=== PATIENT | female | born 1975 | race Caucasian/White ===

== ENCOUNTER → 2016-06-26 | Outpatient (CLI) | payer BC ==
[~2016-06-26] MED LIST: B-COTAB18 PO; BUPR-79 PO; CHOL1TAB42 PO; CYM/30 PO; GLC/500 PO; LEVO137T3 PO; MISCCAP80 PO; OXYC5TAB PO; TOPI200T14 PO
[2016-06-26 11:46] LABS: THYROID STIMULATING HORMONE 0.521 uIu/ml (0.300-4.500)
== END | disposition home or self-care (01) ==
LOC: C.LAB1850 09:46
PROVIDERS: ATTEND Internal Medicine Endocrinology, Diabetes & Metabolism
DX: E03.9 Hypothyroidism, unspecified (principal); E06.3 Autoimmune thyroiditis

== ENCOUNTER 2024-09-25 02:49 | Inpatient (IN) ==
[2024-09-25] MEDS: ONDANSETRON INJ 2 MG/ML 2 ML VIAL ONE (03:10)
--- NOTE | 2024-09-25 03:18 | Emergency Department Note ---
Impression & Plan Calculus of ureterovesical junction (UVJ), Hydronephrosis, Intractable abdominal pain ED Provider Note CHIEF COMPLAINT: Abdominal pain, nausea, vomiting, urinary retention HISTORY OF PRESENT ILLNESS: This 49-year-old female patient presents to the emergency department via private vehicle for evaluation of abdominal pain which radiates to the left flank. She states she has had nausea and vomiting and has been unable to pee since about 10 PM. She states that she medication for symptoms. Denies any history of similar symptoms. She does have a history of nephrolithiasis, but denies passing of any stones. The patient denies any fever. She denies any chills. She does feel constipated. No recent diarrhea. No chest pain or shortness of breath. History provided by: Patient REVIEW OF SYSTEMS: A 10 system review of systems was performed with positives and pertinent negatives listed in the history of present illness. All other systems were reviewed and are negative. ALLERGIES: Erythromycin PHYSICAL EXAM: VITALS: Vitals are noted on the nurse's note and reviewed by myself. GENERAL: This is a 49-year-old female, writhing around on the bed but in no acute distress, nondiaphoretic, well-developed well-nourished. SKIN: The skin was without rashes, erythema, edema, or bruising. There is no tenting of the skin. Capillary refill less than 2 seconds. HEAD: Normocephalic atraumatic. EYES: Conjunctivae without injection, sclerae without icterus. MOUTH: Mucous membranes moist. Tonsils are not enlarged. Pharynx without erythema or exudate. Uvula midline. Airway patent. Tongue does not deviate. NECK: Supple without nuchal rigidity. No lymphadenopathy. Cervical spine is nontender. No JVD. HEART: Regular rate and rhythm without murmurs gallops or rubs. LUNGS: Clear to auscultation bilaterally without wheezes, rales or rhonchi. No retractions or accessory muscle use. ABDOMEN: Positive bowel sounds x 4. Soft, without masses or organomegaly. LLQ tenderness to palpation. Left flank tenderness. Zapata sign negative. Generalized guarding. No rebound tenderness. MUSCULOSKELETAL: No muscle atrophy, erythema, or edema noted. Full range of motion without joint tenderness in all extremities. No tenderness to palpation. Normal gait. Strength 5/5 throughout. NEURO: Patient was alert and oriented to person place and time. Normal sensation to light and sharp touch. Deep tendon reflexes 2+ throughout. No focal neurological deficits. An order was placed for continuous court liaison. The monitor showed a sinus bradycardia at a ventricular rate of 50 bpm, per my interpretation. Imaging as interpreted by myself and the radiologist revealed 4 mm left UVJ stone with hydronephrosis, with radiologist interpretation as above. I agree with the radiologist's findings as based upon my independent interpretation. EMERGENCY DEPARTMENT COURSE: The patient was evaluated as above. The patient presents to the emergency department for abdominal pain, nausea, and vomiting. The patient is complaining of urinary retention. On initial evaluation, she is writhing around on the bed. She is retching. No active vomiting, but she states she had been vomiting frequently earlier in the evening. IV access was obtained, labs were drawn. Patient was medicated with IV Toradol and acetaminophen. She was medicated with IV Zofran and fluids. Labs reviewed. Per my interpretation, mild leukocytosis 11.98. No anemia or thrombocytopenia. Renal, hepatic function and electrolytes without significant abnormality. Lipase 34. Patient has been able to provide a urine. Patient continued to complain of severe abdominal pain. She was medicated with IV morphine. CT imaging was completed and reviewed by myself and radiologist as noted. This shows a 4 mm left UVJ stone. There is hydronephrosis. Patient continue current plan of intractable pain. Unfortunately, her blood pressure is 88 systolic at this time. I advised her that until her blood pressure improves, I am not comfortable administering additional narcotic analgesics. Repeat blood pressure shows the patient's blood pressure is in the 120s systolic. Patient medicated with additional morphine and Zofran. I discussed the case with Dr. López, [facility] hospitalist physician. He did agree to evaluate the patient for admission. Urinalysis is still pending at this time. Patient is complaining of worse abdominal pain after administration of the morphine. She is continuing to have dry heaves. Patient medicated with IV fentanyl, Reglan, and Benadryl. Please see hospitalist dictation regarding ongoing management of this patient and final disposition. Case was discussed with the attending physician. This visit is during a period of high volume and high acuity in the emergency department. I attest that I have personally reviewed the patient medication list. I attest that I have reviewed the patient's blood pressure and it was found to be normal. GCS: 15 In the evaluation and treatment of this patient the following differential diagnoses were entertained: Renal colic, UTI, appendicitis, diverticulitis, mesenteric ischemia, aortic pathology, infections, inflammatory bowel disease, PUD, biliary pathology, as well as other pathologies. The chart was completed utilizing [employer] Speech voice recognition software. Grammatical errors, random word insertions, pronoun errors, and incomplete sentences are an occasional consequence of this system due to software limitations, ambient noise, and hardware issues. Any formal questions or concerns about the content, text, or information contained within the body of this dictation should be directly addressed to the provider for clarification. Past Med/Surg History Problem List (Updated 09/25/24 @ 07:27 by Keyanna Younger PA-C) Intractable abdominal pain (Acute) Hydronephrosis (Acute) Calculus of ureterovesical junction (UVJ) (Acute) Polyneuropathy Dizziness Numbness and tingling of both feet Pain in left foot Menorrhagia Hypothyroidism (Acute) Messi's thyroiditis (Acute) Vitamin B12 deficiency Migraine headache Migraine without aura Vitamin D deficiency Medical History PCOS (polycystic ovarian syndrome) IBS (irritable bowel syndrome) Aneurysm Blurry vision Depression Dysfunctional uterine bleeding Dysmenorrhea Fibromyalgia Hypertrophy of breast Mitral valve disorder Surgical History (Updated 09/26/23 @ 12:43 by Kitty Beaver DO) S/P patent foramen ovale closure Status post tubal ligation S/P endometrial ablation S/P dilatation and curettage S/P colonoscopy S/P hysterectomy Social History Smoking Status: Never smoker Preferred Language: Estonian Feels Safe at Home: Yes Allergies Allergies Allergy/AdvReac Type Severity Reaction Status Date / Time erythromycin base Allergy Unknown RASH Verified 09/26/23 15:19 Home Meds Home Medications Medication Instructions Recorded Confirmed levothyroxine 137 mcg tablet 137 mcg PO DAILY 07/07/20 09/26/23 multivitamin (Multiple Vitamins 1 tab PO DAILY 07/07/20 09/26/23 tablet) cyanocobalamin (vitamin B-12) 1,000 mcg PO DAILY 02/08/21 09/26/23 1,000 mcg capsule cholecalciferol (vitamin D3) 25 4,000 unit PO DAILY 03/06/21 09/26/23 mcg (1,000 unit) tablet dextroamphetamine-amphetamine 20 20 mg PO BID 08/08/21 09/26/23 mg tablet albuterol sulfate 90 mcg/actuation 2 puff inhalation Q4H PRN 09/26/23 09/26/23 aerosol inhaler Shortness Of Breath Or Wheezing Previous Rx's Medication Instructions Recorded albuterol sulfate 2.5 mg/3 mL 2.5 mg (3 mL) inhalation Q4H PRN 09/26/23 (0.083 %) solution for nebulization shortness of breath or wheezing #75 mL prednisone 10 mg tablet See Rx Instructions .Route 09/26/23 .COMPLEX #21 tabs duloxetine 30 mg capsule,delayed 30 mg PO DAILY #30 caps 05/13/24 release (Cymbalta) topiramate 200 mg tablet 200 mg PO BID 90 days #180 tabs 06/16/24 rimegepant 75 mg disintegrating 75 mg PO DAILY PRN migraine 07/12/24 tablet (Nurtec ODT) headache #8 tabs Results & Data (ED) Vital Signs Vital Signs - 24 hr 09/25/24 02:58 09/25/24 03:00 09/25/24 03:13 Temperature 36.5 C 36.7 C Temperature Source Temporal Artery Scan Oral Pulse Rate 50 L Pulse Rate [Right Finger] 50 L Pulse Rhythm [Right Finger] Respiratory Rate 20 18 Respiratory Effort / Characteristics Non-Labored Spontaneous Respiratory Depth Normal Normal Respiratory Pattern Regular Blood Pressure 114/53 L Blood Pressure [Right Arm] 148/67 H Blood Pressure Mean 73 Blood Pressure Mean [Right Arm] 94 Blood Pressure Position [Right Arm] Pulse Oximetry 97 93 97 Oxygen Delivery Method Room Air Room Air Room Air Sepsis Recent Fever Within 48 Hours No Sepsis New/Unexplained Change in Mental Status No Sepsis Action Taken by Nursing No Action Required 09/25/24 03:49 09/25/24 04:00 09/25/24 05:00 Temperature Temperature Source Pulse Rate 52 L Pulse Rate [Right Finger] 50 L 65 Pulse Rhythm [Right Finger] Respiratory Rate 16 17 Respiratory Effort / Characteristics Non-Labored Spontaneous Non-Labored Spontaneous Respiratory Depth Normal Normal Respiratory Pattern Regular Regular Blood Pressure Blood Pressure [Right Arm] 117/56 L 95/46 L Blood Pressure Mean Blood Pressure Mean [Right Arm] 76 62 Blood Pressure Position [Right Arm] Lying Lying Pulse Oximetry 98 96 Oxygen Delivery Method Room Air Room Air Sepsis Recent Fever Within 48 Hours Sepsis New/Unexplained Change in Mental Status Sepsis Action Taken by Nursing 09/25/24 06:30 09/25/24 07:02 Temperature 36.7 C Temperature Source Oral Pulse Rate Pulse Rate [Right Finger] 64 73 Pulse Rhythm [Right Finger] Regular Respiratory Rate 22 18 Respiratory Effort / Characteristics Non-Labored Spontaneous Non-Labored Spontaneous Respiratory Depth Normal Normal Respiratory Pattern Regular Regular Blood Pressure Blood Pressure [Right Arm] 111/57 L 127/60 Blood Pressure Mean Blood Pressure Mean [Right Arm] 75 82 Blood Pressure Position [Right Arm] Lying Semi-fowlers Pulse Oximetry 96 93 Oxygen Delivery Method Room Air Room Air Sepsis Recent Fever Within 48 Hours Sepsis New/Unexplained Change in Mental Status Sepsis Action Taken by Nursing Laboratory Data 09/25/24 03:25 09/25/24 03:25 Lab Results 09/25/24 09/25/24 Range/Units 03:25 05:56 WBC 11.98 H (4.8-10.8) K/ul RBC 4.08 L (4.20-5.40) M/uL Hgb 13.0 (12.0-16.0) g/dl Hct 37.8 (37.0-47.0) % MCV 92.6 (80.0-100.0) fL MCH 31.9 (25.0-34.0) pg MCHC 34.4 (32.0-36.0) g/dL RDW Std Deviation 43.7 (36.4-46.3) fL RDW Coeff of Delaney 12.9 (11.5-14.5) % Plt Count 244 (130-400) K/uL MPV 10.5 (9.4-12.4) fL Immature Gran % (Auto) 0.4 % Neut % (Auto) 77.6 % Lymph % (Auto) 17.9 % Kidder % (Auto) 2.9 % Eos % (Auto) 0.8 % Baso % (Auto) 0.4 % Neut # (Auto) 9.29 H (1.40-6.50) K/uL Lymph # (Auto) 2.15 (1.20-3.40) K/uL Kidder # (Auto) 0.35 (0.11-0.59) K/uL Eos # (Auto) 0.09 (0.00-0.50) K/uL Baso # (Auto) 0.05 (0.00-0.20) K/uL Immature Gran # (Auto) 0.05 (0.01-0.20) K/uL Sodium 142 (136-145) mmol/L Potassium 3.4 L (3.5-5.1) mmol/L Chloride 106 (98-107) mmol/L Carbon Dioxide 30 (21-32) mmol/L Anion Gap 6 (3-11) BUN 14 (6-23) mg/dl Creatinine 0.89 (0.6-1.2) mg/dl Est Cr Clr Drug Dosing 70.0 ml/min eGFR 78.45 BUN/Creatinine Ratio 15.7 (10-20) Glucose 135 H (70-99(Fasting)) mg/dl Calcium 9.2 (8.6-10.3) mg/dl Total Bilirubin 0.3 (0.2-1.0) mg/dl AST 15 (13-39) U/L ALT 11 (7-52) U/L Alkaline Phosphatase 62 (34-104) U/L Total Protein 6.6 (6.0-8.3) gm/dl Albumin 4.4 (3.4-5.0) gm/dl Globulin 2.2 L (2.5-4.0) gm/dl Albumin/Globulin Ratio 2.0 (0.9-2) Lipase 34 (11-82) U/L Urine Comment Administered Medications Discontinued Medications Sodium Chloride (Nss) 1,000 mls @ 999 mls/hr IV .Q1H1M ONE Stop: 09/25/24 04:08 Last Infusion: 09/25/24 04:51 Dose: Infused Documented By: JESUS ALBERTO Admin: 09/25/24 03:22 Dose: 999 mls/hr Documented By: JESUS ALBERTO Acetaminophen (Ofirmev) 1,000 mg in 100 mls @ 400 mls/hr IV NOW STA Stop: 09/25/24 03:27 Last Infusion: 09/25/24 03:43 Dose: Infused Documented By: JESUS ALBERTO Admin: 09/25/24 03:21 Dose: 400 mls/hr Documented By: JESUS ALBERTO Sodium Chloride (Nss) 1,000 mls @ 999 mls/hr IV .Q1H1M ONE Stop: 09/25/24 06:48 Last Infusion: 09/25/24 07:03 Dose: Infused Documented By: Admin: 09/25/24 05:59 Dose: 999 mls/hr Documented By: JESUS ALBERTO Ketorolac Tromethamine (Ketorolac 30 Mg/Ml Vial) 30 mg IV NOW STA Stop: 09/25/24 03:14 Last Admin: 09/25/24 03:20 Dose: 30 mg Documented By: JESUS ALBERTO Morphine Sulfate (Morphine Sulfate 4 Mg/Ml 1 Ml Carp\Vial) 4 mg IV NOW STA Stop: 09/25/24 04:25 Last Admin: 09/25/24 04:31 Dose: 4 mg Documented By: JESUS ALBERTO Morphine Sulfate (Morphine Sulfate 2 Mg/Ml Carp) 2 mg IV NOW STA Stop: 09/25/24 06:41 Last Admin: 09/25/24 06:43 Dose: 2 mg Documented By: JESUS ALBERTO Ondansetron HCl (Ondansetron Inj 2 Mg/Ml 2 Ml Vial) 4 mg IV NOW STA Stop: 09/25/24 03:09 Last Admin: 09/25/24 03:21 Dose: 4 mg Documented By: JESUS ALBERTO Ondansetron HCl (Ondansetron Inj 2 Mg/Ml 2 Ml Vial) Confirm Administered Dose 4 mg .ROUTE .STK-MED ONE Stop: 09/25/24 03:09 Last Admin: 09/25/24 03:10 Dose: Not Given Documented By: [facility] Ondansetron HCl (Ondansetron Inj 2 Mg/Ml 2 Ml Vial) 4 mg IV NOW STA Stop: 09/25/24 06:41 Last Admin: 09/25/24 06:43 Dose: 4 mg Documented By: JESUS ALBERTO Imaging Data Radiologist's Impression: Abdomen/Pelvis CT 09/25/24 03:13 EXAM: CT abd pelvis wo con CLINICAL HISTORY: left flank pain TECHNIQUE: Contiguous axial images were obtained from the level of the diaphragm to the pubic symphysis without intravenous or oral contrast. Coronal and sagittal reconstructions were likewise performed and indicated to increase the sensitivity for detecting clinically relevant pathology. CT scan was performed according to ALARA (as low as reasonable achievable). 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 Evaluation of the abdominal and pelvic visceral organs is limited without intravenous contrast. The unenhanced liver, spleen, pancreas, and adrenal glands are grossly unremarkable. The gallbladder is removed. The kidneys are normal in size and attenuation without obvious calcification. Few tiny 2-3 mm sized calculi are noted involving mid and lower calyx of left kidney. Left kidney shows hydronephrosis and hydroureter up to an obstructing calculus of size 4 mm is noted in left vesicoureteric junction. The ureters are normal in caliber. No adenopathy or fluid collections are seen. No evidence of focal or diffuse bowel wall thickening or evidence of bowel obstruction is seen. The appendix is visualized in the right lower quadrant and appears within normal limits. The aorta is normal in caliber. The urinary bladder is normal in contour. Pelvic viscera are grossly unremarkable. No aggressive appearing osseous lesions are identified. Degenerative changes noted in visualised spine. Colonic fecal and gaseous distension. IMPRESSION: 1. Few tiny 2-3 mm sized calculi are noted involving mid and lower calyx of left kidney.- increased in numbers since prior. 2. Left kidney shows hydronephrosis and hydroureter up to an obstructing calculus of size 4 mm in left vesicoureteric junction.-new finding. Electronically signed by Jc Miller 09-25-2024 04:39 AM Discharge Plan Visit Data Chief Complaint: Urinary Symptoms Stated Complaint: PAIN IN LEFT FLANK,VOMITING,UNABLE TO VOID ED Provider: Tatianna Salcedo ED Midlevel Provider: Keyanna Younger Discharge Problem: Calculus of ureterovesical junction (UVJ), Hydronephrosis, Intractable abdominal pain Patient Disposition: Admitted As Inpatient Condition: Fair Forms Stand Alone Forms: [facility] Prescriptions Prescriptions: No Action cholecalciferol (vitamin D3) 25 mcg (1,000 unit) tablet 4,000 unit PO DAILY duloxetine [Cymbalta] 30 mg capsule,delayed release(DR/EC) 30 mg PO DAILY Qty: 30 5RF topiramate 200 mg tablet 200 mg PO BID 90 Days Qty: 180 3RF Nurtec ODT 75 mg tablet,disintegrating 75 mg PO DAILY PRN (Reason: migraine headache) Qty: 8 5RF Rx Instructions: using nurtec now only as needed cyanocobalamin (vitamin B-12) 1,000 mcg capsule 1,000 mcg PO DAILY levothyroxine 137 mcg tablet 137 mcg PO DAILY multivitamin [Multiple Vitamins] Tablet 1 tab PO DAILY dextroamphetamine-amphetamine 20 mg tablet 20 mg PO BID albuterol sulfate 90 mcg/actuation HFA aerosol inhaler 2 puff INHALATION Q4H PRN (Reason: Shortness Of Breath Or Wheezing) albuterol sulfate 2.5 mg /3 mL (0.083 %) solution for nebulization 2.5 mg inhalation Q4H PRN (Reason: shortness of breath or wheezing) Qty: 75 0RF prednisone 10 mg tablet See Rx Instructions .ROUTE .COMPLEX Qty: 21 0RF Rx Instructions: Take 6 tabs by mouth day 1, then 5 tabs on day 2, then decrease by 1 tab daily until complete Referrals Referrals: Verna Cheatham DO [Primary Care Provider] -
[2024-09-25] MEDS: KETOROLAC 30 MG/ML VIAL IV STA (03:20)
[2024-09-25] MEDS: ONDANSETRON INJ 2 MG/ML 2 ML VIAL IV STA ×2 (03:21→06:43)
[2024-09-25] MEDS: ACETAMINOPHEN 1,000 MG/100 ML VIAL IV STA (03:21)
[2024-09-25] MEDS: SODIUM CHLORIDE 0.9% 1,000 ML IV ONE ×2 (03:22→05:59)
[2024-09-25 03:36] LABS: Basophils # (auto) 0.05 K/uL (0.00-0.20); Basophils % (auto) 0.4 %; Eosinophils # (auto) 0.09 K/uL (0.00-0.50); Eosinophils % (auto) 0.8 %; Hematocrit (blood only) 37.8 % (37.0-47.0); Immature Granulocytes # (auto) 0.05 K/uL (0.01-0.20); Immature Granulocytes % (auto) 0.4 %; Lymphocytes # (auto) 2.15 K/uL (1.20-3.40); Lymphocytes % (auto) 17.9 %; Mean Corpuscular Hemoglobin 31.9 pg (25.0-34.0); Mean Corpuscular Hgb Conc 34.4 g/dL (32.0-36.0); Mean Corpuscular Volume 92.6 fL (80.0-100.0); Mean Platelet Volume 10.5 fL (9.4-12.4); Monocytes # (auto) 0.35 K/uL (0.11-0.59); Monocytes % (auto) 2.9 %; Neutrophils # (auto) 9.29 K/uL (1.40-6.50); Neutrophils % (auto) 77.6 %; Platelet Count 244 K/uL (130-400); RDW Coefficient of Variation 12.9 % (11.5-14.5); RDW Standard Deviation 43.7 fL (36.4-46.3); Red Blood Count 4.08 M/uL (4.20-5.40); White Blood Count 11.98 K/ul (4.8-10.8)
[2024-09-25 04:00] LABS: Albumin Level 4.4 gm/dl (3.4-5.0); Bilirubin,Total 0.3 mg/dl (0.2-1.0); Calcium 9.2 mg/dl (8.6-10.3); Potassium 3.4 mmol/L (3.5-5.1)
[2024-09-25 04:06] LABS: BUN Creatinine Ratio 15.7 (10-20); Globulin 2.2 gm/dl (2.5-4.0); Total Protein 6.6 gm/dl (6.0-8.3)
[2024-09-25] MEDS: MoRPHine SULFATE 4 MG/ML 1 ML CARP\\VIAL IV STA (04:31)
--- NOTE | 2024-09-25 04:40 | CT Scan Report ---
EXAM: CT abd pelvis wo con CLINICAL HISTORY: left flank pain TECHNIQUE: Contiguous axial images were obtained from the level of the diaphragm to the pubic symphysis without intravenous or oral contrast. Coronal and sagittal reconstructions were likewise performed and indicated to increase the sensitivity for detecting clinically relevant pathology. CT scan was performed according to ALARA (as low as reasonable achievable). 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 Evaluation of the abdominal and pelvic visceral organs is limited without intravenous contrast. The unenhanced liver, spleen, pancreas, and adrenal glands are grossly unremarkable. The gallbladder is removed. The kidneys are normal in size and attenuation without obvious calcification. Few tiny 2-3 mm sized calculi are noted involving mid and lower calyx of left kidney. Left kidney shows hydronephrosis and hydroureter up to an obstructing calculus of size 4 mm is noted in left vesicoureteric junction. The ureters are normal in caliber. No adenopathy or fluid collections are seen. No evidence of focal or diffuse bowel wall thickening or evidence of bowel obstruction is seen. The appendix is visualized in the right lower quadrant and appears within normal limits. The aorta is normal in caliber. The urinary bladder is normal in contour. Pelvic viscera are grossly unremarkable. No aggressive appearing osseous lesions are identified. Degenerative changes noted in visualised spine. Colonic fecal and gaseous distension. IMPRESSION: 1. Few tiny 2-3 mm sized calculi are noted involving mid and lower calyx of left kidney.- increased in numbers since prior. 2. Left kidney shows hydronephrosis and hydroureter up to an obstructing calculus of size 4 mm in left vesicoureteric junction.-new finding. Electronically signed by Jc Miller 09-25-2024 04:39 AM
[2024-09-25] MEDS: MoRPHine SULFATE 2 MG/ML CARP IV STA ×2 (06:43→12:06)
[2024-09-25] MEDS: diphenhydrAMINE 50 MG/ML VIAL IV STA (07:31)
[2024-09-25] MEDS: METOCLOPRAMIDE HCL INJ 5 MG/ML 2 ML VIAL IV STA (07:31)
[2024-09-25] MEDS: fentaNYL citrate PF 100 MCG/2 ML VIAL IV STA (07:32)
[2024-09-25 07:37] LABS: Appearance Urine Clear (Clear); Bacteria Urine Automated None Seen (None Seen); Bilirubin Urine Negative (Negative); Blood Urine 3+ (Negative); Cast Urine Automated 0-2 /lpf (0-2); Color Urine Yellow; Epithelial Cell Urine Auto 0-2 /hpf (0-2); Glucose Urine UA Negative (Negative); Ketones Urine 1+ (Negative); Leukocyte Esterase Urine Negative (Negative); Nitrite Urine Negative (Negative); Protein Urine Trace (Negative); RBC Urine Automated >20 /hpf (0-2); Specific Gravity Urine 1.027 (1.000-1.030); Urobilinogen Urine Negative (Negative); WBC Urine Automated 0-5 /hpf (0-5)
--- NOTE | 2024-09-25 08:35 | History & Physical Report ---
Date of Service September 25, 2024 Assessment & Plan (1) Nephrolithiasis: (2) Intractable abdominal pain: (3) Hydronephrosis: (4) Calculus of ureterovesical junction (UVJ): (5) Hypothyroidism: (6) Migraine headache: (7) Bradycardia: Plan 49-year-old female with a past medical history of migraines/neuropathy [place] [facility] [place], endometriosis s/p hysterectomy, and PFO s/p repair 20 years prior presents for evaluation of abdominal pain which radiates to the left flank associated with nausea, vomiting, and difficulty urinating since the prior evening. Nephrolithiasis/Intractable abdominal pain/Hydronephrosis - Nausea/vomiting associated with 8-10/10 L. flank pain and moderate LLQ pain - CT AP significant for 4mm obstructing stone in the left vesicoureteric junction with hydronephrosis and a few 2-3mm calculi in the mid and lower left renal calyx. Flomax not indicated based on size of stone - CBC with left shift and mild leukocytosis - Pain control: Toradol 30mg IV Q6H, consider Morphine 2mg IV Q4H PRN - Mild hypokalemia: 3.4 - NSS with 20meq KCL 100ml/hr 1L started - NPO- will advance as tolerated - Consider urology consult if pain is not tolerable for potential stenting Bradycardia - Asymptomatic, patient denies chest pain, lightheadedness, and dizziness - EKG significant for sinus bradycardia - Continue CCM and follow symptoms Chronic problems: Hypothyroidism: Continue Levothyroxine 137mg daily Chronic Migraines: Previously controlled with Topamax, but patient reports she does not currently take this medication History of Present Illness Chief Complaint: Nausea, vomiting, flank pain, nephrolithiasis Primary Care Provider: DO Geovanna Valente Benny is a 49 y/o F with a past medical history of migraines/neuropathy following with [facility] [place], endometriosis s/p hysterectomy, and PFO s/p repair 20 years prior arriving at [facility] due to left lower abdominal pain, left flank pain, nausea, and vomiting starting yesterday evening. Patient reports that over the past few weeks her heart rate has been lower than normal and that over the past few days she had not been in pain or had nausea/vomiting but had been straining more during urination. Patient denies hematuria, chest pain, palpitations, SOB, cough, and wheeze, and fevers. Patient does endorse chills and moderate abdominal pain reduced after IV morphine was administered in the ED. In the ED CT imaging was positive for a 4mm obstructing stone in the left vesicoureteric junction with hydronephrosis and a few 2-3mm calculi in the mid and lower left renal calyx. CBC was positive for mild leukocytosis at 11.98 and left shift with neutrophils at 9.29 BMP was positive for mild hypokalemia (3.4) and hyperglycemia (135) however creatinine and eGFR were wnl UA was positive for 3+ blood, greater than 20 urine RBCs, 1+ ketones and trace protein CXR: wnl, EKG: sinus bradycardia Patient reports that her pain has improved after her recent dose of morphine, but remains nauseous. She reports that the last time she urinated was 2 hours ago and required increased straining. Patient is currently afebrile and hemodynamically stable. Allergies Allergy/AdvReac Type Severity Reaction Status Date / Time erythromycin base Allergy Unknown RASH Verified 09/26/23 15:19 Home Medications Medication Instructions Recorded Confirmed Type levothyroxine 137 mcg tablet 137 mcg PO UD 07/07/20 09/25/24 History dextroamphetamine-amphetamine 20 20 mg PO UD 08/08/21 09/25/24 History mg tablet albuterol sulfate 2.5 mg/3 mL 2.5 mg (3 mL) inhalation Q4H PRN 09/26/23 09/25/24 Rx (0.083 %) solution for nebulization shortness of breath or wheezing #75 mL rimegepant 75 mg disintegrating 75 mg PO DAILY PRN migraine 07/12/24 09/25/24 Rx tablet (Nurtec ODT) headache #8 tabs Past Med/Surg History Problem List (Updated 09/25/24 @ 08:59 by James Sainz DO) Bradycardia Nephrolithiasis Intractable abdominal pain (Acute) Hydronephrosis (Acute) Calculus of ureterovesical junction (UVJ) (Acute) Polyneuropathy Dizziness Numbness and tingling of both feet Pain in left foot Menorrhagia Hypothyroidism (Acute) Messi's thyroiditis (Acute) Vitamin B12 deficiency Migraine headache Migraine without aura Vitamin D deficiency Medical History PCOS (polycystic ovarian syndrome) IBS (irritable bowel syndrome) Aneurysm Blurry vision Depression Dysfunctional uterine bleeding Dysmenorrhea Fibromyalgia Hypertrophy of breast Mitral valve disorder Surgical History (Updated 09/26/23 @ 12:43 by Kitty Beaver, ) S/P patent foramen ovale closure Status post tubal ligation S/P endometrial ablation S/P dilatation and curettage S/P colonoscopy S/P hysterectomy Social History Smoking Status: Former smoker Second Hand Exposure: No; Do You Dip or Chew Tobacco: No; Tobacco Cessation Education Requested by Patient: No Hx Alcohol Use: No Hx Substance Use: No Preferred Language: Belarusian 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 Skin: warm, dry, intact HEENT: NC/AT, anicteric sclera, conjunctiva without injection, moist mucus membranes. Heart: +S1/S2, regular, no m/r/g Lungs: equal air entry bilaterally, no rales/rhonchi/wheezes Abd: +BS, soft, ND, moderate tenderness at LLQ and increased left flank tenderness Ext: warm, no clubbing/cyanosis or edema Neuro: nonfocal, speech intact, no facial droop, moving all extremities. Results & Data Results & Data Vital Signs (Past 12 Hours) Vital Signs Temp Pulse Pulse Resp BP BP Pulse Ox 09/25/24 08:11 47 L 09/25/24 07:02 73 18 127/60 93 09/25/24 06:30 36.7 C 64 22 111/57 L 96 09/25/24 05:00 65 17 95/46 L 96 09/25/24 04:00 50 L 16 117/56 L 98 09/25/24 03:49 52 L 09/25/24 03:13 97 09/25/24 03:00 36.7 C 50 L 18 148/67 H 93 09/25/24 02:58 36.5 C 50 L 20 114/53 L 97 O2 Del Method 09/25/24 08:11 09/25/24 07:02 Room Air 09/25/24 06:30 Room Air 09/25/24 05:00 Room Air 09/25/24 04:00 Room Air 09/25/24 03:49 09/25/24 03:13 Room Air 09/25/24 03:00 Room Air 09/25/24 02:58 Room Air Supervising Physician Co-Signing Physician Notes I personally examined the patient and verified all thomas points of history and exam, discussed case, and agree with decision making with Dr Sainz ongoing flank pain and nausea. not any better since this AM vitals noted fatigued and at times appearing uncomfortable. breathing unlabored no accessory muscles good effort skin no rashes no pallor or icterus neuro no focal deficits ureterolithiasis - only 4mm but intractable pain/n/v. initially IV fluids, pain control, supportive care - but in f/u this afternoon not really any better - d/w urology who will see in AM - if sx ongoing then cysto/stenting otherwise as above Resident Activity Tracking Resident Involvement: Resident Care Provided Care Provided: Adult Hospital Medicine
[2024-09-25] MEDS ORDERED: ALBUTEROL HFA 8 GM INHALER INH PRN (10:16)
[2024-09-25] MEDS ORDERED: POLYETHYLENE (MIRALAX) 17 GM PACK PO PRN (10:16)
[2024-09-25] MEDS: LEVOTHYROXINE SODIUM 137 MCG TABLET PO SCH (11:02)
[2024-09-25] MEDS: DULoxetine HCL 30 MG CAP PO SCH (11:07)
[2024-09-25] MEDS: TOPIRAMATE 100 MG TAB PO SCH (11:07)
[2024-09-25] MEDS: DEXTROAMPHETAMINE/AMPHETAMINE IR 20 MG TAB PO SCH (11:12)
[2024-09-25] MEDS: KETOROLAC 30 MG/ML VIAL IV ONE (12:07)
[2024-09-25] MEDS: NSS + 20MEQ KCL 20 MEQ/1,000 ML BAG IV SCH (13:46)
[2024-09-25] MEDS: HYDROmorphone INJ 0.5 MG/0.5 ML SYR IV PRN (16:47)
[2024-09-25] MEDS: ONDANSETRON INJ 2 MG/ML 2 ML VIAL IV PRN (16:52)
--- NOTE | 2024-09-25 17:08 | Billing Data ---
Date of Service September 25, 2024 Coding Level of Care Code 77814 INT INP/OBS CARE
[2024-09-25] MEDS: KETOROLAC 30 MG/ML VIAL IV PRN (18:21)
[2024-09-25] MEDS: PHENAZOPYRIDINE HCL 200 MG TAB PO PRN (20:29)
[2024-09-26 03:27] VITALS: RESP 18
[2024-09-26] MEDS: ACETAMINOPHEN 325 MG TAB PO PRN (06:15)
--- NOTE | 2024-09-26 07:48 | Urology Consultation ---
Date of Consultation September 26, 2024 Assessment & Plan (1) Nephrolithiasis: (2) Hydronephrosis: (3) Calculus of ureterovesical junction (UVJ): Plan 49-year-old female with a left distal ureteral calculus and hydronephrosis. Reviewed patient's labs and imaging. Discussed options with patient's which would be medical expulsive therapy versus stent placement. Explained that typically in acute setting, would not replace a stent and then patient would return for stone treatment in the future. Discussed expectations of medical expulsive therapy Given that her pain is slightly improved and there is no concern for infection, we came to an agreement to schedule her for an outpatient stone surgery this upcoming Friday as a have availability in the OR. This would potentially decrease the number of procedures she would need ultimately. If she does pass the stone before then, can certainly cancel this procedure. I have sent a message to schedule this Patient can have a diet and be discharged home with p.o. pain medication History of Present Illness Attending Physician: Jacob Yepez MD History of Present Illness 49-year-old female admitted for left flank pain on 09/25/2024. She was afebrile with stable vitals. Labs showed a mild leukocytosis of 11.9, creatinine of 0.89 which appears to be roughly her baseline, the urinalysis that was negative outside of microscopic hematuria. CT scan of the abdomen pelvis was performed and independently reviewed. This shows mild left hydronephrosis and several nonobstructing left-sided stones. There is a 5 to 6 mm left UVJ stone. She reports feeling better today but does not appear that she has passed the stone at this time. Allergies Allergy/AdvReac Type Severity Reaction Status Date / Time erythromycin base Allergy Unknown RASH Verified 09/26/23 15:19 Home Medications Medication Instructions Recorded Confirmed Type levothyroxine 137 mcg tablet 137 mcg PO UD 07/07/20 09/25/24 History dextroamphetamine-amphetamine 20 20 mg PO UD 08/08/21 09/25/24 History mg tablet albuterol sulfate 2.5 mg/3 mL 2.5 mg (3 mL) inhalation Q4H PRN 09/26/23 09/25/24 Rx (0.083 %) solution for nebulization shortness of breath or wheezing #75 mL rimegepant 75 mg disintegrating 75 mg PO DAILY PRN migraine 07/12/24 09/25/24 Rx tablet (Nurtec ODT) headache #8 tabs Patient History Medical History PCOS (polycystic ovarian syndrome) IBS (irritable bowel syndrome) Aneurysm Blurry vision Depression Dysfunctional uterine bleeding Dysmenorrhea Fibromyalgia Hypertrophy of breast Mitral valve disorder Surgical History (Updated 09/26/23 @ 12:43 by Kitty Beaver, DO) S/P patent foramen ovale closure Status post tubal ligation S/P endometrial ablation S/P dilatation and curettage S/P colonoscopy S/P hysterectomy Social History Smoking Status: Former smoker Second Hand Exposure: No; Do You Dip or Chew Tobacco: No; Tobacco Cessation Education Requested by Patient: No Hx Alcohol Use: No Hx Substance Use: No Preferred Language: Cambodian 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 Required: No Beliefs That Will Affect Care: None Current Living Situation: Family Current Living Situation Comment: house w/ family Other Information That Helps Us Care for You: No Feels Safe at Home: Yes Safety Concerns: Feels Safe At This Time Assistive Devices: None Physical Exam Physical Exam: General: Alert and oriented, no acute distress HEENT: Normocephalic, mucous membranes moist Pulmonary: Nonlabored respirations Abdomen: Nondistended Extremities: Moves all 4 spontaneously Neuro: No gross deficits Skin: Warm, dry, no rashes noted Results & Data Vital Signs (Past 12 Hours) Vital Signs Temp Pulse Pulse Resp BP Pulse Ox Pulse Ox 09/26/24 03:25 37.0 C 68 18 105/57 L 90 09/26/24 03:13 90 09/26/24 02:29 50 L 09/25/24 23:18 37.0 C 59 L 16 135/65 95 09/25/24 19:54 O2 Del Method O2 Del Method 09/26/24 03:25 Room Air 09/26/24 03:13 Room Air 09/26/24 02:29 09/25/24 23:18 Room Air 09/25/24 19:54 Room Air PG Care Time/CCT Total # of Minutes Spent Total Time Spent with Patient: Total time spent is greater than 50% in coordination of care (as documented) at patient's floor/unit and/or counseling patient: Coding Level of Care Code 77797 IN/OBS CONSULT LVL 3,45M Diagnoses Nephrolithiasis N20.0 Hydronephrosis N13.30 Calculus of ureterovesical junction (UVJ) N20.1
[2024-09-26 08:26] VITALS: BP 102/59; TEMP 98.2; O2SAT 96
--- NOTE | 2024-09-26 08:34 | Hospitalist Progress Note ---
Date of Service September 26, 2024 Assessment & Plan (1) Nephrolithiasis: (2) Intractable abdominal pain: (3) Hydronephrosis: (4) Calculus of ureterovesical junction (UVJ): (5) Hypothyroidism: (6) Migraine headache: (7) Bradycardia: Plan 49-year-old female with a past medical history of migraines/neuropathy following with [facility] neurology, endometriosis s/p hysterectomy, and PFO s/p repair 20 years prior presents for evaluation of abdominal pain which radiates to the left flank associated with nausea, vomiting, and difficulty urinating since the prior evening. Nephrolithiasis/Intractable abdominal pain/Hydronephrosis - Nausea/vomiting associated with 8-10/10 L. flank pain and moderate LLQ pain - CT AP significant for 4mm obstructing stone in the left vesicoureteric junction with hydronephrosis and a few 2-3mm calculi in the mid and lower left renal calyx. Flomax not indicated based on size of stone - CBC with left shift and mild leukocytosis - Pain control: Toradol 30mg IV Q6H, consider Morphine 2mg IV Q4H PRN - Mild hypokalemia: 3.4 - NSS with 20meq KCL 100ml/hr 1L started - NPO- will advance as tolerated - Consider urology consult if pain is not tolerable for potential stenting Bradycardia - Asymptomatic, patient denies chest pain, lightheadedness, and dizziness - EKG significant for sinus bradycardia - Continue CCM and follow symptoms Chronic problems: Hypothyroidism: Continue Levothyroxine 137mg daily Chronic Migraines: Previously controlled with Topamax, but patient reports she does not currently take this medication Admission and Anticipated Discharge Date Admission Date: September 25, 2024 Results & Data Results & Data Vital Signs (Past 12 Hours) Vital Signs Temp Pulse Pulse Resp BP Pulse Ox Pulse Ox 09/26/24 08:25 36.8 C 55 L 18 102/59 L 96 09/26/24 03:25 37.0 C 68 18 105/57 L 90 09/26/24 03:13 90 09/26/24 02:29 50 L 09/25/24 23:18 37.0 C 59 L 16 135/65 95 O2 Del Method O2 Del Method 09/26/24 08:25 Room Air 09/26/24 03:25 Room Air 06/22/25 03:13 Room Air 09/26/24 02:29 09/25/24 23:18 Room Air PG Care Time/CCT Total # of Minutes Spent Total Time Spent with Patient: Total time spent is greater than 50% in coordination of care (as documented) at patient's floor/unit and/or counseling patient: Coding Diagnoses Nephrolithiasis N20.0 Intractable abdominal pain R10.9 Hydronephrosis N13.30 Calculus of ureterovesical junction (UVJ) N20.1 Hypothyroidism E03.9 Migraine headache G43.909 Bradycardia R00.1
--- NOTE | 2024-09-26 09:57 | Discharge Summary ---
Discharge Summary Date of Service September 26, 2024 Principal Dx & Hospital Course #1 = Principal Diagnosis (1) Nephrolithiasis: (2) Intractable abdominal pain: (3) Hydronephrosis: (4) Calculus of ureterovesical junction (UVJ): (5) Hypothyroidism: (6) Migraine headache: (7) Bradycardia: Plan 49-year-old female with a past medical history of migraines/neuropathy following [place] [facility] [place], endometriosis s/p hysterectomy, and PFO s/p repair 20 years prior presents for evaluation of abdominal pain which radiates to the left flank associated with nausea, vomiting, and difficulty urinating since the prior evening. #Nephrolithiasis/Intractable abdominal pain/Hydronephrosis - Nausea/vomiting associated with 8-10/10 L. flank pain and moderate LLQ pain (resolved). CT AP significant for 4mm obstructing stone in the left vesicoureteric junction with hydronephrosis and a few 2-3mm calculi in the mid and lower left renal calyx. CBC with left shift and mild leukocytosis, however UA negative for acute infection. - Pain well controlled overnight - Diet advanced and tolerated - Flomax not indicated based on size of stone. - urology consulted - planning for elective stone removal in office on Friday 09/29, cleared for DC #Bradycardia - Asymptomatic, patient denies chest pain, lightheadedness, and dizziness. Patient reports she has bradycardia at baseline. - EKG significant for sinus bradycardia #Hypokalemia - k+ 3.4 at time of admission. Likely depletion 2/2 vomiting which has resolved. - NSS with 20meq KCL 100ml/hr 1L completed - repeat BMP revealed K+ 3.8 #Hypothyroidism - Continue Levothyroxine 137mg daily #Chronic Migraines - Previously controlled with Topamax, but patient reports she does not currently take this medication Dispo: DC home with elective urology procedure 09/29 Notes For Next Care Provider Medication Changes From Visit none Admission HPI Per Admitting Provider Geovanna Benny is a 49 y/o F with a past medical history of migraines/neuropathy following with [facility] [place], endometriosis s/p hysterectomy, and PFO s/p repair 20 years prior arriving at [facility] due to left lower abdominal pain, left flank pain, nausea, and vomiting starting yesterday evening. Patient reports that over the past few weeks her heart rate has been lower than normal and that over the past few days she had not been in pain or had nausea/vomiting but had been straining more during urination. Patient denies hematuria, chest pain, palpitations, SOB, cough, and wheeze, and fevers. Patient does endorse chills and moderate abdominal pain reduced after IV morphine was administered in the ED. In the ED CT imaging was positive for a 4mm obstructing stone in the left vesicoureteric junction with hydronephrosis and a few 2-3mm calculi in the mid and lower left renal calyx. CBC was positive for mild leukocytosis at 11.98 and left shift with neutrophils at 9.29 BMP was positive for mild hypokalemia (3.4) and hyperglycemia (135) however creatinine and eGFR were wnl UA was positive for 3+ blood, greater than 20 urine RBCs, 1+ ketones and trace protein CXR: wnl, EKG: sinus bradycardia Patient reports that her pain has improved after her recent dose of morphine, but remains nauseous. She reports that the last time she urinated was 2 hours ago and required increased straining. Patient is currently afebrile and he modynamically stable. Admission Exam Per Admitting Provider General: patient resting comfortably, NAD, non-toxic in appearance, answers questions appropriately. Skin: warm, dry, intact HEENT: NC/AT, anicteric sclera, conjunctiva without injection, moist mucus membranes. Heart: +S1/S2, regular, no m/r/g Lungs: equal air entry bilaterally, no rales/rhonchi/wheezes Abd: +BS, soft, ND, moderate tenderness at LLQ and increased left flank tenderness Ext: warm, no clubbing/cyanosis or edema Neuro: nonfocal, speech intact, no facial droop, moving all extremities. Discharge Exam The patient is awake, alert and oriented 3, well developed and well nourished, normocephalic and atraumatic, in no acute distress. Non-toxic appearing. HEENT- EOMI, mucous membranes moist. Hearing grossly intact. Heart-normal S1 and S2. No murmurs, rubs or gallops. Lungs-clear bilaterally, no respiratory distress, no accessory muscle use. Abdomen-normal bowel sounds and soft. No ascites noted. Non-tender. Extremities- no clubbing, cyanosis, or edema. Rheumatologic-normal range of motion. Psychiatric-normal affect. Discharge Plan Discharge Items Patient Disposition: Home - Self-Care Reason For Visit: NAUSEA,VOMITING,NEPHROLITHIASIS Discharge Diagnosis: Left ureteral calculus and left hydronephrosis Condition on Discharge: Fair Activity: Resume your previous activity Non-emergency contact: Urologist Call non-emergency contact if: you have any medication questions, your symptoms worsen and your pain is not controlled Follow-up/Referrals: Verna Cheatham DO [Primary Care Provider] - ( follow-up in 1 to 2 weeks) Vern Gordon MD [Physician] - ( office team will reach out to you tomorrow at 09/27 to set up elective procedure for 09/29) Diet: Regular Addtl Attending Provider Instructions: You were hospitalized for nausea, and vomiting which was secondary to a left ureteral stone and left hydronephrosis. Your pain was well-controlled overnight and after eval by urology, it was determined that you are stable for discharge home and to have an elective procedure on Friday 09/29. The urology office will reach out to you tomorrow 09/27 to arrange this and give further instructions. If you develop significant pain, fevers, chills, dysuria, or are unable to urinate please return to the ED. I have sent oxycodone 5 mg p.o. that you can take every 8 hours as needed to help control your pain at home until you have your outpatient procedure. You can also take Tylenol as needed. It is recommended that you follow up with your PCP in 1-2 weeks after being discharged. Pending Studies at Discharge: No Stand-Alone Forms: My [facility], Smoking Cessation Medications and DC Order Prescriptions: New oxycodone 5 mg tablet 5 mg PO Q8H PRN (Reason: pain) Qty: 12 0RF Continued Nurtec ODT 75 mg tablet,disintegrating 75 mg PO DAILY PRN (Reason: migraine headache) Qty: 8 5RF Rx Instructions: using nurtec now only as needed levothyroxine 137 mcg tablet 137 mcg PO UD Rx Instructions: original:137mcg po daily 09/25-no fill history unable to verify dextroamphetamine-amphetamine 20 mg tablet 20 mg PO UD Rx Instructions: original:20mg po bid 09/25-no fill history unable to verify albuterol sulfate 2.5 mg /3 mL (0.083 %) solution for nebulization 2.5 mg inhalation Q4H PRN (Reason: shortness of breath or wheezing) Qty: 75 0RF Discharge Orders: Discharge Order (Routine); Ordered 09/26/24 Ordered By: Alisha Coleman/Other Patient Handouts: Oxycodone Oral Tablet, Understanding Kidney Stones, Identifying Kidney Stones Admission Data Admit Date/Time: 09/25/24 08:29 Attending Provider: Jaocb Yepez Admit Provider: James Sainz Primary Care Provider: Verna Cheatham Other Providers: Vern Gordon Other Interventions: Discharge Summary Assessment (RN) Last Done: 09/26/24 11:22 Hospital Stay Data Consultations 09/25/24 16:15 Consult Urology Routine Diagnostic Imagining Performed 09/25/24 03:13 CT abd pelvis wo con Stat Discharge Instructions Given to Patient (Per Discharging Provider) You were hospitalized for nausea, and vomiting which was secondary to a left ureteral stone and left hydronephrosis. Your pain was well-controlled overnight and after eval by urology, it was determined that you are stable for discharge home and to have an elective procedure on Friday 09/29. The urology office will reach out to you tomorrow 09/27 to arrange this and give further instructions. If you develop significant pain, fevers, chills, dysuria, or are unable to urinate please return to the ED. I have sent oxycodone 5 mg p.o. that you can take every 8 hours as needed to help control your pain at home until you have your outpatient procedure. You can also take Tylenol as needed. It is recommended that you follow up with your PCP in 1-2 weeks after being discharged. Supervising Physician Co-Signing Physician Notes The patient was not seen by me. The chart was reviewed. Case discussed with BEATRIZ Johnson. Agree with assessment and plan Total Time Total Time Spent Total Time Spent (In Minutes): 35 Coding Level of Care Code 49109 INP/OBS DISCH >30 MIN Diagnoses Nephrolithiasis N20.0 Intractable abdominal pain R10.9 Hydronephrosis N13.30 Calculus of ureterovesical junction (UVJ) N20.1 Hypothyroidism E03.9 Migraine headache G43.909 Bradycardia R00.1
[2024-09-26] MEDS: LACTATED RINGER'S 1,000 ML IV SCH (10:14)
[2024-09-26 10:45] LABS: BUN Creatinine Ratio 17.1 (10-20); Calcium 8.2 mg/dl (8.6-10.3); Potassium 3.8 mmol/L (3.5-5.1)
[2024-09-26 11:23] VITALS: PULSE 55
== END 2024-09-26 12:33 | disposition home or self-care (01) | DRG 694 ==
LOC: ED 02:49 → SUATTDRO 08:29 → 4W 08:29